=== PATIENT | female | born 1985 | race Two or more races ===

== ENCOUNTER 2018-05-02 18:05 | Emergency (ER) | payer MEDICAID ==
[~2018-05-02] VITALS: Ht 157.5 cm; Wt 74.8 kg
[2018-05-02] MEDS ORDERED: ONDANSETRON HCL/PF 4 MG/2 ML VIAL IVP ONE (20:00)
[2018-05-02] MEDS ORDERED: IV NS 0.9% 1,000 ML BAG IV ONE (20:00)
--- NOTE | 2018-05-02 20:05 | NUR ---
PT BBSELF FROM HOME C/C RUQ ABDOMINAL PAIN, NAUSEA AND DIARRHEA X 1 WEEK. PT'S SKIN WARM AND DRY. ORAL MUCOSA MOIST. PT IS AAOX4. RR EVEN AND UNLABORED. PT PLACED ON DIRECTOR EMERGENCY SERVICES AND POX. NO S/S OF ACUTE DISTRESS NOTED. WILL CONTINUE TO MONITOR PT.
--- NOTE | 2018-05-02 20:09 | NUR ---
USABILITY STRATEGIST BEDSIDE WITH PT
[2018-05-02 20:30] LABS: BASOPHILS % (AUTO) 0.5 % (0.0-2.0); EOSINOPHILS % (AUTO) 2.3 % (0.0-6.0); HEMATOCRIT 38 % (33-45); HEMOGLOBIN 12.4 g/dL (11.5-14.8); LYMPHOCYTES # (AUTO) 1.4 /CMM (0.8-4.8); LYMPHOCYTES % (AUTO) 16.3 % (20.0-44.0); MEAN CORPUSCULAR HGB CONC 32 g/dl (31.0-36.0); MEAN CORPUSCULAR VOLUME 79 fL (82-100); MONOCYTES # (AUTO) 0.6 /CMM (0.1-1.30); MONOCYTES % (AUTO) 7.3 % (2.0-12.0); NEUTROPHILS # (AUTO) 6.1 /CMM (1.8-8.9); NEUTROPHILS % (AUTO) 73.6 % (43.0-81.0); PLATELET COUNT (AUTO) 295 /CMM (150-450); RED BLOOD CELL COUNT(AUTO) 4.86 MIL/uL (4.0-5.2); WHITE BLOOD COUNT (AUTO) 8.3 K/uL (4.3-11.0)
[2018-05-02 20:40] LABS: CREATININE 0.6 mg/dL (0.6-1.3); POTASSIUM 3.2 mmol/L (3.5-5.1)
--- NOTE | 2018-05-02 20:40 | NUR ---
STOOL, URINE, AND BLOOD SPECIMENS HANDED OFF TO MEETING/EVENT PLANNER.
[2018-05-02] MEDS ORDERED: ONDANSETRON HCL/PF 4 MG/2 ML VIAL ONE (20:41)
[2018-05-02 20:50] LABS: ALBUMIN 3.7 g/dL (3.4-5.0); BILIRUBIN,DIRECT 0.1 mg/dL (0.0-0.2); BILIRUBIN,TOTAL 0.4 mg/dL (0.2-1.0); TOTAL PROTEIN, SERUM 7.7 g/dL (6.4-8.2)
[2018-05-02 20:59] LABS: APPEARANCE,URINE SL CLOUDY (CLEAR); BILIRUBIN,URINE NEGATIVE (NEGATIVE); BLOOD, URINE NEGATIVE Ery/uL (NEGATIVE); COLOR,URINE YELLOW (YELLOW); KETONES,URINE TRACE (NEGATIVE); LEUKOCYTE ESTERASE ,URINE NEGATIVE (NEGATIVE); NITRITE, URINE NEGATIVE (NEGATIVE); PH,URINE 6.5 (5.0-8.0); PROTEIN,URINE TRACE mg/dl (NEGATIVE); UGLUCOSE NEGATIVE (NEGATIVE)
[2018-05-02 21:06] LABS: BACTERIA,URINE Few /HPF (None Seen); RBC,URINE 0-2 /HPF (0-2); SQUAMOUS EPITHELIAL CELL,UR Few /HPF (None Seen)
--- NOTE | 2018-05-02 22:32 | NUR ---
Patient discharged to home in stable condition. Written and verbal after care instructions given. Patient verbalizes understanding of instruction.IV removed. Catheter intact and site benign. Pressure and 4x4 applied to site. No bleeding noted. PT AMBULATED OUT WITH STEADY GAIT NOTED
[2018-05-02 22:34] VITALS: BP 129/75
== END 2018-05-02 22:36 | disposition home or self-care (01) ==
LOC: ER 18:11
DX: R11.10 Vomiting, unspecified (principal); R19.7 Diarrhea, unspecified; J02.9 Acute pharyngitis, unspecified; H10.89 Other conjunctivitis; R10.11 Right upper quadrant pain; Z88.0 Allergy status to penicillin; Z88.6 Allergy status to analgesic agent; Z91.040 Latex allergy status; Z88.8 Allergy status to other drugs, medicaments and biological substances
CPT/HCPCS: 36415; 76705; 80048; 80076; 81001; 83690; 85025; 87015; 87045; 87427 ×3; 89055; 96361; 96374; 99284; A4606; J2405; J7030; 81000-TC

== ENCOUNTER 2018-08-01 10:29 | Emergency (ER) | payer MEDICAID ==
[~2018-08-01] VITALS: Ht 160 cm; Wt 65.3 kg
--- NOTE | 2018-08-01 10:33 | NUR ---
PT BIB SELF C/O GENERALIZED WEAKNESS, DIFFUSE ABDOMINAL PAIN W/ DIARRHEA X 4 MONTHS, PT IS AAOX4, NOT IN RESPIRATORY DISTRESS, VS STABLE, KEPT RESTED AND COMFORTABLE, WILL CONTINUE TO MONITOR, AWAITING ER MD FOR EVAL.
--- NOTE | 2018-08-01 10:48 | NUR ---
DR MILIAN AT BEDSIDE FOR EVAL.
[2018-08-01] MEDS ORDERED: IV NS 0.9% 1,000 ML BAG IV ONE (11:00)
--- NOTE | 2018-08-01 11:00 | NUR ---
URINE SPECIMEN COLLECTED AND SENT TO LAB.
--- NOTE | 2018-08-01 11:10 | NUR ---
IV LINE ESTABLISHED, BLOOD DRAWNED AND SENT TO LAB.
[2018-08-01 11:11] LABS: BASOPHILS % (AUTO) 0.7 % (0.0-2.0); EOSINOPHILS % (AUTO) 1.1 % (0.0-6.0); HEMATOCRIT 43 % (33-45); HEMOGLOBIN 14.4 g/dL (11.5-14.8); LYMPHOCYTES # (AUTO) 1.8 /CMM (0.8-4.8); LYMPHOCYTES % (AUTO) 33.8 % (20.0-44.0); MEAN CORPUSCULAR HGB CONC 33 g/dl (31.0-36.0); MEAN CORPUSCULAR VOLUME 83 fL (82-100); MONOCYTES # (AUTO) 0.5 /CMM (0.1-1.30); MONOCYTES % (AUTO) 9.9 % (2.0-12.0); NEUTROPHILS # (AUTO) 2.8 /CMM (1.8-8.9); NEUTROPHILS % (AUTO) 54.5 % (43.0-81.0); PLATELET COUNT (AUTO) 327 /CMM (150-450); RED BLOOD CELL COUNT(AUTO) 5.18 MIL/uL (4.0-5.2); WHITE BLOOD COUNT (AUTO) 5.2 K/uL (4.3-11.0)
[2018-08-01 11:22] LABS: CALCIUM, SERUM 8.2 mg/dL (8.5-10.1); CREATININE 0.7 mg/dL (0.6-1.3); POTASSIUM 4.4 mmol/L (3.5-5.1)
[2018-08-01 11:28] LABS: ALBUMIN 2.5 g/dL (3.4-5.0); BILIRUBIN,DIRECT 0.1 mg/dL (0.0-0.2); BILIRUBIN,TOTAL 0.4 mg/dL (0.2-1.0); TOTAL PROTEIN, SERUM 6.1 g/dL (6.4-8.2)
[2018-08-01] MEDS ORDERED: CT SWABBABLE VALVE TRANS SET 1 EA INFUS.SET MC ONE (11:33)
[2018-08-01] MEDS ORDERED: IV NS 0.9% 250 ML IV ONE (11:33)
[2018-08-01] MEDS ORDERED: IOHEXOL-300 100 ML VIAL IV ONE (11:33)
--- NOTE | 2018-08-01 11:47 | NUR ---
PT IS BACK FROM THE CT SCAN.
--- NOTE | 2018-08-01 12:27 | NUR ---
STOOL SAMPLE COLLECTED AND SENT TO LAB.
--- NOTE | 2018-08-01 12:37 | NUR ---
TECH AT BEDSIDE FOR US.
--- NOTE | 2018-08-01 13:24 | NUR ---
IV removed. Catheter intact and site benign. Pressure and 4x4 applied to site. No bleeding noted. Patient discharged to home in stable condition. Written and verbal after care instructions given. Patient verbalizes understanding of instruction.
[2018-08-01 13:25] VITALS: BP 110/68
== END 2018-08-01 13:27 | disposition home or self-care (01) ==
LOC: ER 10:29
DX: K52.9 Noninfective gastroenteritis and colitis, unspecified (principal); R10.84 Generalized abdominal pain; K76.0 Fatty (change of) liver, not elsewhere classified; R94.5 Abnormal results of liver function studies; Z88.0 Allergy status to penicillin; Z88.6 Allergy status to analgesic agent; Z91.040 Latex allergy status; Z88.8 Allergy status to other drugs, medicaments and biological substances
CPT/HCPCS: 36415; 74177; 76705; 80048; 80074; 80076; 83690; 84703; 85025; 87015; 87045; 87427 ×3; 87493; 89055; 96360; 99284; J7030; J7050; Q9967

== ENCOUNTER 2021-11-07 11:42 | Emergency (ER) | payer MEDICAID ==
[~2021-11-07] VITALS: Ht 160 cm; Wt 74.4 kg
[2021-11-07] MEDS ORDERED: TETRACAINE HCL 0.5% OPHTALMIC 15 ML BOTTLE RIGHTEYE ONE (12:30)
[2021-11-07 12:31] LABS: BASOPHILS % (AUTO) 0.2 % (0.0-2.0); EOSINOPHILS % (AUTO) 1.8 % (0.0-6.0); HEMATOCRIT 41 % (33-45); HEMOGLOBIN 13.3 g/dL (11.5-14.8); LYMPHOCYTES # (AUTO) 1.6 K/uL (0.8-4.8); LYMPHOCYTES % (AUTO) 22.9 % (20.0-44.0); MEAN CORPUSCULAR HGB CONC 33 g/dl (31.0-36.0); MEAN CORPUSCULAR VOLUME 86 fL (82-100); MONOCYTES # (AUTO) 0.5 K/uL (0.1-1.30); MONOCYTES % (AUTO) 6.9 % (2.0-12.0); NEUTROPHILS # (AUTO) 4.7 K/uL (1.8-8.9); NEUTROPHILS % (AUTO) 68.2 % (43.0-81.0); PLATELET COUNT (AUTO) 298 K/uL (150-450); RED BLOOD CELL COUNT(AUTO) 4.72 MIL/uL (4.0-5.2); WHITE BLOOD COUNT (AUTO) 6.9 K/uL (4.3-11.0)
[2021-11-07 12:39] LABS: CALCIUM, SERUM 9.5 mg/dL (8.5-10.1); CREATININE 0.8 mg/dL (0.6-1.3); POTASSIUM 3.9 mmol/L (3.5-5.1)
[2021-11-07] MEDS ORDERED: IOHEXOL-350 100 ML VIAL IV ONE (13:06)
--- NOTE | 2021-11-07 14:40 | NUR ---
IV removed. Catheter intact and site benign. Pressure and 4x4 applied to site. No bleeding noted.
--- NOTE | 2021-11-07 14:47 | NUR ---
Patient discharged to home in stable condition. Written and verbal after care instructions given. Patient verbalizes understanding of instruction.
[2021-11-07 14:48] VITALS: BP 122/67
== END 2021-11-07 14:48 | disposition home or self-care (01) ==
LOC: ER 11:47
DX: H54.7 Unspecified visual loss (principal); R51.9 Headache, unspecified; Z88.0 Allergy status to penicillin; Z88.6 Allergy status to analgesic agent; Z88.8 Allergy status to other drugs, medicaments and biological substances; Z91.040 Latex allergy status
CPT/HCPCS: 99285; 70498; 76512; 70496; 85025; 80048; 36415; 70450; Q9967